=== PATIENT | male | born 1940 | race Caucasian/White ===

== ENCOUNTER → 2017-04-16 | Outpatient (CLI) | payer OTHER | LOC: FIMAGING 15:00 | PROVIDERS: ATTEND Internal Medicine | DX: J44.9 Chronic obstructive pulmonary disease, unspecified (principal); R07.81 Pleurodynia; I25.10 Atherosclerotic heart disease of native coronary artery without angina pectoris | CPT/HCPCS: 81003-QW-PO; G0463-PO ==

== ENCOUNTER → 2017-05-04 | Outpatient (CLI) | payer OTHER | LOC: BHFA 09:30 | PROVIDERS: ATTEND Internal Medicine Cardiovascular Disease | DX: I25.10 Atherosclerotic heart disease of native coronary artery without angina pectoris (principal); I34.0 Nonrheumatic mitral (valve) insufficiency ==

== ENCOUNTER → 2017-05-04 | Outpatient (CLI) | payer OTHER | LOC: BHFA 09:30 | PROVIDERS: ATTEND Internal Medicine Cardiovascular Disease | DX: R94.31 Abnormal electrocardiogram [ECG] [EKG] (principal) ==

== ENCOUNTER 2018-03-11 17:17 | Inpatient (IN) | payer OTHER ==
--- NOTE | 2018-03-11 17:26 | CPEKG ---
Heart Rate: 73 RR Interval: 822 P-R Interval: 124 QRSD Interval: 104 QT Interval: 376 QTC Interval: 415 P Cisco: -13 QRS Cisco: -27 T Wave Cisco: 10 EKG Severity - OTHERWISE NORMAL ECG - EKG Impression: SINUS RHYTHM Electronically Signed By: Ramses Vanegas 11-Mar-2018 18:28:16
--- NOTE | 2018-03-11 17:33 | EDPHY ---
H & P Stated Complaint: Medtronic Pacer/Defib has defibbed 5 times beginning around 1400 today Time Seen by Provider: 03/11/18 17:26 HPI/ROS: CHIEF COMPLAINT: AICD firing HISTORY OF PRESENT ILLNESS: The patient presents the ED after 5 episodes of his AICD firing since 2 o'clock this afternoon. The patient denies any symptoms of chest pain or shortness of breath. The patient felt he may have been getting electrocuted by an appliance. The patient does have a history of coronary artery disease. He is status post stenting of the right coronary artery in 2016. The patient has had no symptoms of recent exertional chest pain or shortness of breath. He denies asymmetric calf pain or swelling. He denies additional acute complaints. The patient's AICD was placed for ventricular tachycardia. REVIEW OF SYSTEMS: A comprehensive 10 point review of systems is otherwise negative aside from elements mentioned in the history of present illness. Source: Patient Exam Limitations: No limitations - Personal History Tetanus Vaccine Date: 2009 - Medical/Surgical History Hx Asthma: No Hx Chronic Respiratory Disease: No Hx Diabetes: No Hx Cardiac Disease: Yes Hx Renal Disease: No Hx Cirrhosis: No Hx Alcoholism: No Hx HIV/AIDS: No Hx Splenectomy or Spleen Trauma: No Other PMH: [place] 1981, HIATAL HERNIA, APPENDECTOMY, PARTIAL THYROIDECTOMY, AICD d/ t tachycardia - Social History Smoking Status: Former smoker - Physical Exam Exam: General Appearance: Alert, no distress Eyes: Pupils equal and round no pallor or injection ENT, Mouth: Mucous membranes moist Respiratory: There are no retractions, lungs are clear to auscultation Cardiovascular: Regular rate and rhythm Gastrointestinal: Abdomen is soft and nontender, no masses, bowel sounds normal Neurological: A&O, normal motor function, normal sensory exam, normal cranial nerves Skin: Warm and dry, no rashes Musculoskeletal: Neck is supple nontender Extremities: symmetrical, full range of motion Constitutional: Initial Vital Signs Heart Rate 66 03/11/18 17:23 Respiratory Rate 18 03/11/18 17:23 Blood Pressure 153/89 H 03/11/18 17:23 O2 Sat (%) 94 03/11/18 17:23 O2 Delivery Mode Room Air Allergies/Adverse Reactions: Penicillins Allergy (Mild, Verified 11/04/15 10:51) Rash Home Medications: Medication Instructions Recorded Aspirin [Aspirin 81mg (*)] 81 mg PO HS 11/04/15 Multivitamins [Multivitamin (*)] 1 tab PO DAILY@1800 11/04/15 OMEPRAZOLE 20 mg PO DAILY@1800 11/04/15 Nitroglycerin [Nitrostat 0.4 mg 0.4 mg SL PRN PRN #1 btl 11/07/15 (*)] Lisinopril [Zestril 2.5 mg (*)] 2.5 mg PO DAILY #30 tab 12/13/15 Apixaban [Eliquis] 5 mg PO BID #60 tablet 12/18/15 Atorvastatin Calcium [Lipitor 20 20 mg PO HS 12/18/15 mg (*)] Metoprolol Tartrate [Lopressor 25 12.5 mg PO BID 12/18/15 mg (*)] Medical Decision Making - Diagnostics EKG Interpretation: EKG: Complete interpretation has been separately recorded in the [employer] archive. Summary impression: Sinus rhythm, rate 86 Imaging Results: Chest x-ray AP: Images reviewed by myself, negative for heart failure or obvious pacemaker lead malfunction. ED Course/Re-evaluation: Consultation was made with Dr. Fernandez from Cardiology who interrogated the patient 's device and found that it was appropriately shocking ventricular tachycardia. The patient will be loaded on amiodarone and admitted to the hospital under the care of the cardiology service. The patient was monitored throughout his stay in the emergency department without recurrent arrhythmia. Review of the patient's chest x-ray, EKG and electrolytes are unremarkable. The patient will be admitted to the PCU monitored unit in stable condition. Differential Diagnosis: Differential diagnosis considered includes ventricular tachycardia, ventricular fibrillation, atrial fibrillation, SVT, pacemaker malfunction - Data Points Laboratory Results: Laboratory Results 03/11/18 17:25 03/11/18 17:25 03/11/18 03/11/18 03/11/18 17:25 17:25 17:25 WBC 11.06 10^3/uL H 10^3/uL (3.80-9.50) RBC 5.22 10^6/uL 10^6/uL (4.40-6.38) Hgb 15.7 g/dL g/dL (13.7-17.5) Hct 47.2 % % (40.0-51.0) MCV 90.4 fL fL (81.5-99.8) MCH 30.1 pg pg (27.9-34.1) MCHC 33.3 g/dL g/dL (32.4-36.7) RDW 13.6 % % (11.5-15.2) Plt Count 188 10^3/uL 10^3/uL (150-400) MPV 10.5 fL fL (8.7-11.7) Neut % (Auto) 75.7 % H % (39.3-74.2) Lymph % (Auto) 17.5 % % (15.0-45.0) Avery % (Auto) 4.5 % % (4.5-13.0) Eos % (Auto) 1.5 % % (0.6-7.6) Baso % (Auto) 0.5 % % (0.3-1.7) Nucleat RBC Rel Count 0.0 % % (0.0-0.2) Absolute Neuts (auto) 8.36 10^3/uL H 10^3/uL (1.70-6.50) Absolute Lymphs (auto) 1.94 10^3/uL 10^3/uL (1.00-3.00) Absolute Monos (auto) 0.50 10^3/uL 10^3/uL (0.30-0.80) Absolute Eos (auto) 0.17 10^3/uL 10^3/uL (0.03-0.40) Absolute Basos (auto) 0.06 10^3/uL 10^3/uL (0.02-0.10) Absolute Nucleated RBC 0.00 10^3/uL 10^3/uL (0-0.01) Immature Gran % 0.3 % % (0.0-1.1) Immature Gran # 0.03 10^3/uL 10^3/uL (0.00-0.10) Sodium 144 mEq/L mEq/L 142 mEq/L mEq/L (135-145) (135-145) Potassium 4.4 mEq/L mEq/L 4.4 mEq/L mEq/L (3.3-5.0) (3.3-5.0) Chloride 105 mEq/L mEq/L 104 mEq/L mEq/L (97-110) (97-110) Carbon Dioxide 23 mEq/l mEq/l 25 mEq/l mEq/l (22-31) (22-31) Anion Gap 16 mEq/L mEq/L 13 mEq/L mEq/L (8-16) (8-16) BUN 21 mg/dL mg/dL 20 mg/dL mg/dL (7-23) (7-23) Creatinine 1.1 mg/dL mg/dL 1.1 mg/dL mg/dL (0.7-1.3) (0.7-1.3) Estimated GFR > 60 > 60 Glucose 141 mg/dL H mg/dL 140 mg/dL H mg/dL (70-100) (70-100) Calcium 9.5 mg/dL mg/dL 9.6 mg/dL mg/dL (8.5-10.4) (8.5-10.4) Total Bilirubin 1.9 mg/dL H mg/dL (0.1-1.4) AST 27 IU/L IU/L (17-59) ALT 38 IU/L IU/L (21-72) Alkaline Phosphatase 88 IU/L IU/L (38-126) Total Protein 8.0 g/dL g/dL (6.3-8.2) Albumin 4.4 g/dL g/dL (3.5-5.0) Medications Given: Discontinued Medications Amiodarone HCl (Amiodarone Hcl) 100 mls @ 600 mls/hr IV ONCE ONE Stop: 03/11/18 17:52 Last Admin: 03/11/18 17:55 Dose: 100 mls Departure - Departure Disposition: [facility] Inpatient Acute Clinical Impression: Ventricular tachycardia Condition: Good
[2018-03-11 17:41] LABS: PLATELET COUNT 188 10^3/uL (150-400)
[2018-03-11] MEDS ORDERED: AMIODARONE HCL 100 ML IV ONE (17:43)
[2018-03-11] MEDS ORDERED: AMIODARONE HCL 200 ML IV ONE (18:10)
[2018-03-11] MEDS ORDERED: AMIODARONE HCL 540 MG in D5W 300 ML IV ONE (18:10)
[2018-03-12] MEDS ORDERED: AMIODARONE HCL 540 MG in D5W 300 ML IV ONE (01:00)
[2018-03-12] MEDS ORDERED: NITROGLYCERIN 0.4 MG BTL SL PRN (07:36)
[2018-03-12] MEDS ORDERED: DIAZEPAM 5 MG TAB PO ONE (07:37)
[2018-03-12] MEDS ORDERED: ASPIRIN EC 325 MG TAB PO ONE (07:37)
[2018-03-12] MEDS ORDERED: diphenhydrAMINE 25 MG CAP PO ONE (07:37)
[2018-03-12] MEDS ORDERED: TEMAZEPAM 15 MG CAP PO PRN (07:37)
[2018-03-12] MEDS ORDERED: FAMOTIDINE 20 MG TAB PO ONE (07:37)
--- NOTE | 2018-03-12 08:25 | GHP ---
[f rep st] PREOP HISTORY AND PHYSICAL DATE OF ADMISSION: 03/11/2018 This is a 77-year-old male with past medical history of coronary artery disease status post PCI in [facility] 2016, status post ventricular tachycardia with Medtronic ICD placement, functional severe MR, w hich resolved after the stent placement. Over the past 2 years, the patient has been stable with [facility] followup with Dr. Mccoy and he has done well. He denies any symptoms over the past 1 year. He was working in his lawn and cutting the grass at which point in time, he started feeling ICD shocks w ithout preceding chest pain, shortness of breath, lightheadedness, dizziness, presyncope, or syncope. He felt as if he was getting electrocuted by an appliance. The patient denies any fever, any recent increase in weight, any pedal edema. No recent change in me dications. REVIEW OF SYSTEMS: Other than the above is negative. PAST MEDICAL HISTORY: 1. Coronary artery disease status post PCI to the RCA, bare metal stents placed. 2. Severe MR, which was functional and after his last echocardiogram showed mild MR with normal EF. 3. Myocardial infarction 40 years back. 4. Reflux disease, hiatal hernia, dyslipidemia, hypertension. FAMILY HISTORY: Positive family history of coronary artery disease. SOCIAL HISTORY: Quit smoking 3-4 drinks per week. He is retired. Active. ALLERGIES: Penicillin. HOME MEDICATION: Nitroglycerin, metoprolol 12.5 twice daily, lisinopril 2.5 once a day, atorvastatin 20 mg once a day, aspirin, omeprazole. PHYSICAL EXAM: VITAL SIGNS: Blood pressure of 110/68, pulse of 62, respiratory rate 16. HEENT: Th e patient is alert, oriented, in no apparent distress. Pupils equal, reacting to light, accommodatin g. NECK: No JVD. No thyromegaly. CHEST: Good air entry bilaterally equal. No rales, rhonchi, ru b. CARDIAC: S1, S2 regular. No S3. No murmurs. ABDOMEN: Soft, nontender. No guarding or rigidi ty. Bowel sounds present. EXTREMITIES: No edema. LAB VALUES: Normal EKGs, normal device was interrogated. Patient had VT with VA dissociation. His VT rate was at around 200 to 207 beats per minute. 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 ATP did termina te in a couple of cases. However, the VT restarted. In addition to this, the patient also had ICD s hocks after which the VT restarted, so it appears that there was not a failure of the device, but elena oing trigger which started his VT back again. IMPRESSION AND PLAN: This is a 77-year-old with coronary artery disease, status post myocardial infa rction, status post percutaneous coronary intervention, status post implantable cardioverter defibril lator, normal ejection fraction as per echo last year. However, the patient did have right coronary artery stenosis last year and 2 years back when he had deep venous thrombosis. In view of this, eval uating with a cardiac catheterization will be helpful. I have explained to him the risks and benefit s and he is thinking about it. For his monomorphic ventricular tachycardia, I will start him on intravenous amiodarone and then toth sition over to p.o. amiodarone. I have explained to him the risks and benefits of the amiodarone. Cristina galvan understands, but he also understands that the benefit outweighs the risks. I will recheck his echocardiogram to make sure there is no change in the ejection fraction, which may have contributed to this or worsening of his mitral regurgitation, which may have contributed to thi s. Thank you for letting me participate in the patient's care. /[id number]/MODL
--- NOTE | 2018-03-12 09:06 | PDHPUP ---
History & Physical Update H&P update statement: This history and physical update is based on an assessment of the patient which was completed after admission or registration (within 24 hours), but prior to the surgery/procedure. H&P update: H&P reviewed & patient examined, no change in patient's condition since H&P completed (Reviewed Dr. Fernandez's consult dated 03/12/2018)
--- NOTE | 2018-03-12 09:07 | PDPROPOC ---
Sedation Plan of Care Sedation Plan of Care: vital signs stable, mental status noted ASA Classification: ASA 2 Planned drugs: fentanyl, midazolam Mallampati Score: Class 2 Mallampati Reference Image: Patient passed 3-3-2 rule?: Yes
[2018-03-12] MEDS ORDERED: MIDAZOLAM 2 MG/2 ML VIAL ONE (09:21)
[2018-03-12] MEDS ORDERED: fentaNYL 100 MCG/2 ML INJ ONE (09:21)
[2018-03-12] MEDS ORDERED: IOPAMIDOL (ISOVUE-370) 150 ML BTL IV ONE (09:21)
[2018-03-12] MEDS ORDERED: LIDOCAINE 1% 300 MG/30 ML SDV ONE (09:21)
[2018-03-12 09:23] LABS: INR 1.03 (0.83-1.16); PROTIME(PATIENT) 13.7 SEC (12.0-15.0)
--- NOTE | 2018-03-12 11:45 | ASMTCMCOM ---
CM Note CM Note Notes: Patient admitted after getting ICD shocks from Medtronic ICD without any precipitating symptoms. He has a history of CAD. 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 Patient is normally independent, very active. He lives with his and has children nearby. I do not anticipate any discharge needs, but Case Management available if anything comes up. Current CM Discharge plan: home with family Date Signed: 03/12/2018 11:44 AM Electronically Signed By:Taylor Kumari RN
[2018-03-12] MEDS ORDERED: ATROPINE SULFATE 1 MG/10 ML SYR ONE (12:57)
[2018-03-12] MEDS ORDERED: ATROPINE SULFATE 1 MG/10 ML SYR IVP PRN (13:00)
[2018-03-12] MEDS ORDERED: ONDANSETRON 4 MG/2 ML VIAL IVP PRN (13:00)
--- NOTE | 2018-03-12 13:04 | PDDXCAT ---
Diagnostic Cath Note - . Date: 03/12/18 Proofreader: Jim Indication: Sustained (>30 sec) monomorphic ventricular tachycardia - Procedure Access: right groin Procedure: left heart catheterization - Materials Left Heart Cath size: 4F Left Heart Cath materials: JL4.0, JR4.0 - Findings-Left Heart Catheterization LM: Normal and divides into LAD and LCx LAD: Moderate size with D1. Luminal irregularities LCX: Codominant. Luminal irregularities but otherwise normal. RCA: Stent patent. Good MACKENZIE III flow. No significant atherosclerosis Complications: None Estimated blood loss: <50ml Closure method: manual pressure Assessment: No flow limiting/significant coronary artery disease. Plan: Medical management Patient Problems: Problems Problem Status Onset Ventricular tachycardia Acute Acute cholecystitis Acute DVT (deep venous thrombosis) Acute
[2018-03-12] MEDS: LISINOPRIL 2.5 MG TAB PO SCH (15:11)
[2018-03-12] MEDS: METOPROLOL TARTRATE 25 MG TAB PO SCH ×2 (15:12→20:13)
[2018-03-12] MEDS: AMIODARONE HCL 200 MG TAB PO SCH ×2 (15:12→20:13)
--- NOTE | 2018-03-12 15:45 | PDMN ---
Medical Necessity Medical necessity: change to IP; los>2mn for ventricular tachycardia; requires continued amiodarone gtt, with transition to oral; comorbid CAD s/p MS/PCI and ICD, HTN, HLD, hx DVT; per order 03/12/18
--- NOTE | 2018-03-12 16:58 | ECHO ---
[email or web address] [address] [address] Main: [phone] Fax: Transthoracic Echocardiogram Name: CORINNE HERRERA MR#: [id number] Study Date: 03/12/2018 Study Time: 08:56 AM Date of : 1940 Age: 77 year(s) Height: 182.9 cm (72 in.) Weight: 71.21 kg (157 lb.) BSA: 1.92 m2 Gender: Male Examination: Echo Indication: Ventricular tachycardia Image Quality: Adequate Contrast: Requested by: Oscar Fernandez BP: 112 mmHg/66 mmHg Heart Rate: Rhythm: Normal sinus rhythm Indication: Ventricular tachycardia Procedure Staff Photoengraver Apprentice: Brianne Gottlieb [facility] [[email or web address]] Reading Physician: Chandni Lackey MD Requesting Provider: Conclusions: Normal size left ventricle. No LV hypertrophy. Low normal left ventricular systolic function. EF is 52 %. Grade 1 diastolic dysfunction (abnormal relaxation). Basal inferior wall is thin, bight and akinetic consistent with old DC. Normal size right ventricle. Normal RV function. There is an ICD lead noted in the right ventricle. Mild mitral valve regurgitation is present. Trivial to mild aortic valve regurgitation. Mild tricuspid regurgitation is present. Right ventricular systolic pressure measures 26mmHg. compared with 05/04/2017 mild aortic regurgitation is now present. Other findings are similar. Measurements: Chambers Valvular Assessment AV/MV Valvular Assessment TV/PV Normal Normal Normal Name Value Range Name Value Range Name Value Range Ao Pia (MM): 3.0 cm (2.2 cm-3.7 AV Vmax: 1.30 m/s (1 m/s-1.7 TR Vmax: 2.27 mm/s ( - ) cm) m/s) TR PGmax: 21 mmHg ( - ) IVSd (2D): 0.8 cm (0.6 cm-1.1 AV maxP mmHg ( - ) syst. PAP: 26 mmHg ( - ) cm) LVOT Vmax: 0.70 m/s (0.7 m/s-1.1 PV Vmax: 0.88 m/s (0.6 m/s-0.9 LVDd (2D): 4.6 cm (4.2 cm-5.9 m/s) m/s) cm) MV E Vmax: 0.59 m/s ( - ) PV PGmax: 3 mmHg ( - ) LVDs (2D): 3.8 cm (2.1 cm-4 MV A Vmax: 0.69 m/s ( - ) cm) MV E/A: 0.86 ( - ) LVPWd (2D): 0.9 cm (0.6 cm-1 cm) LVEF (BP): 52 % (>=55 %) Patient: CORINNE HERRERA Study Date: 03/12/2018 Page 1 of 2 08:56 AM RVDd(2D): 3.2 cm (1.9 cm-3.8 cmmm) Continued Measurements: Chambers Valvular Assessment AV/MV Valvular Assessment TV/PV Name Value Name Value Name Value LADs Lon.3 cm MV DecTime: 246 m/s CVP (est.): 5 mmHg LA Area: 18.6 cm2 MV E' Septal: 0.05 m/s LA Volume: 49 ml MV E/E' Septal: 11.60 LA Volume Index: 25.5 ml/m2 MV E/E' Lateral: 7.20 TAPSE: 1.8 cm RA Area: 14.6 cm2 Additional Vessels Name Value Ao Ascendin.2 cm Findings: Left Ventricle: Normal size left ventricle. No LV hypertrophy. Low normal left ventricular systolic function. EF is 52 %. Grade 1 diastolic dysfunction (abnormal relaxation). Basal inferior wall is thin, bight and akinetic consistent with old DC. Right Ventricle: Normal size right ventricle. Normal RV function. There is an ICD lead noted in the right ventricle. Left Atrium: The left atrium is normal in size. Right Atrium: The right atrium is normal in size. There is an ICD lead noted in the right atrium. Mitral Valve: There is moderate thickening of the mitral valve leaflets. Mild mitral valve regurgitation is present. No mitral stenosis is present. Aortic Valve: The aortic valve is tri-leaflet and functions normally. Mild aortic cusp calcification is noted. No aortic valve stenosis is present. Trivial to mild aortic valve regurgitation. Tricuspid Valve: Tricuspid valve not visualized. Mild tricuspid regurgitation is present. The pulmonary artery pressure is normal. Right ventricular systolic pressure measures 26mmHg. Pulmonic Valve: The pulmonic valve is normal in appearance and function. There is no pulmonic regurgitation seen. Aorta: Normal size aortic root measuring 3.0 cm. Normal size ascending aorta measuring 3.2 cm. Pericardium: No pericardial effusion. (No Signature Object) Patient: CORINNE HERRERA Study Date: 03/12/2018 Page 2 of 2 08:56 AM [id number]
[2018-03-12] MEDS ORDERED: MULTIVITAMINS 1 EACH TAB PO SCH (18:00)
[2018-03-12] MEDS ORDERED: ASPIRIN 81 MG CHEWABLE TAB PO SCH (21:00)
[2018-03-12] MEDS ORDERED: ATORVASTATIN CALCIUM 20 MG TAB PO SCH (21:00)
[2018-03-13 04:51] LABS: PLATELET COUNT 179 10^3/uL (150-400)
[2018-03-13 07:20] VITALS: BP 109/67
[2018-03-13] MEDS: METOPROLOL TARTRATE 25 MG TAB PO SCH (07:53)
[2018-03-13] MEDS: LISINOPRIL 2.5 MG TAB PO SCH (07:54)
[2018-03-13] MEDS: AMIODARONE HCL 200 MG TAB PO SCH (07:54)
--- NOTE | 2018-03-13 09:47 | ASDISCHSUM ---
Discharge Information Plan Status:Home with No Needs Medically Cleared to Leave:03/13/2018 Discharge Date:03/13/2018 CM D/C Disposition:Home, Routine, Self-Care ADT D/C Disposition:Home, Routine, Self-Care Projected Discharge Date:03/13/2018 12:00 AM Transportation at D/C:Family Discharge Delay Reason: Follow-Up Date:03/13/2018 12:00 AM Discharge Slot:1 - 8:01 am - 12:00 noon Final Diagnosis:Monomorphic ventricular tachycardia Placement Information Patient Contact Information Contact Name:NADEEM(DAUGHTER)SHARON Relationship: Address:[address] City:[place] Alternate Phone: [facility]/Zip Code:[place] [address] Email: Financial Information Financial Class:Medicare Primary Plan Desc:MEDICARE OUTPATIENT Primary Plan Number:[id number] Secondary Plan Desc:AMIE Secondary Plan Number:[id number] Assessment Information [facility] CM Progress Note CM Note CM Note Notes: Patient admitted after getting ICD shocks from Medtronic ICD without any precipitating symptoms. He has a history of CAD. 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 Patient is normally independent, very active. He lives with his and has children nearby. I do not anticipate any discharge needs, but Case Management available if anything comes up. Current CM Discharge plan: home with family Date Signed: 03/12/2018 11:44 AM Electronically Signed By:Taylor Kumari RN Intervention Information Intervention Type:*GUADALUPE-Signed Date of Service:03/12/2018 03:44 PM Patient Type:Inpatient Staff Member:Kathy Macdonald Hours: Discipline: Severity: Comment:
--- NOTE | 2018-03-13 09:51 | ASMTCMCOM ---
CM Note CM Note Notes: CM met with patient prior to discharge, patient states his will pick him up and will support with any follow up as recommended states no questions for CM at this time. Patient given IM, he signed receipt and IM placed in back of chart. CM available for any additional follow up needs. Date Signed: 03/13/2018 09:51 AM Electronically Signed By:Yadi Preston
--- NOTE | 2018-03-13 09:52 | ASMTLACE ---
SC[facility] Comorbidities - select Answers: Coronary Artery Disease all that apply Previous myocardial infarction Other Notes: HTN # of Emergency department Answers: 1-2 visits in the last 6 months Score: 5 Date Signed: 03/13/2018 09:51 AM Electronically Signed By:Yadi Preston
--- NOTE | 2018-03-13 11:00 | GDS ---
[f rep st] DISCHARGE SUMMARY DIAGNOSES ON ADMISSION: 1. Monomorphic ventricular tachycardia with appropriate automatic implantable cardioverter-defibrill ator therapy. 2. Coronary artery disease with remote history of myocardial infarction and percutaneous coronary in tervention. 3. History of severe mitral regurgitation which improved after percutaneous coronary intervention. 4. Dyslipidemia. 5. Hypertension. DISCHARGE DIAGNOSES: 1. Monomorphic ventricular tachycardia. 2. Starting antiarrhythmic therapy. 3. Coronary artery disease. 4. History of severe mitral regurgitation which improved with percutaneous coronary intervention. 5. Hypertension. 6. Dyslipidemia. PROCEDURES PERFORMED DURING HOSPITALIZATION: 1. Electrocardiogram. 2. Chest x-ray. 3. Diagnostic coronary catheterization. 4. Echocardiogram. BRIEF HISTORY: Please see H and P. briefly, the patient is a 77-year-old male with previous history of myocardial infarction, and coronary artery disease, with remote [employer] AICD implantation. Mow ing his yard on the experience defibrillator shock x5, presented to the emergency department for further evaluation. HOSPITAL COURSE: Upon arrival to the emergency department, interrogation of the device was done, dwayne wing monomorphic ventricular tachycardia. His VT rates were between 200-207 beats per minute. This was evaluated by Dr. Fernandez of Electrophysiology Services. Due to this, he was started on antiarrhythm ic therapy of IV amiodarone. Placed on the PCU for overnight observation. On the following morning, he did undergo echocardiogram which showed low normal LVEF of 52% with basilar inferior wall thinnin g and akinetic consistent with old [place]. He is noted to have trivial to mild AI, mild TR, mild MR, RVS P was within normal limits. Due to his history and recent events he was later, on the , taken to the cardiac catheterization lab by Dr. Fernandez and underwent diagnostic coronary catheterization from th e right groin, noted his left main was normal. His LAD was moderate size with luminal irregularities , circumflex was noted with luminal irregularities but no flow limitation. RCA with previous stent w hich was patent, MACKENZIE-3 flow and no significant arthrosclerosis. After 24 hours of IV amiodarone, he was transitioned to oral amiodarone at 400 mg p.o. twice daily. On telemetry he has had no further r uns of VT. He denies any chest pain or pressure since his hospitalization and has had no adverse jamilah ctions with amiodarone loading. PHYSICAL EXAMINATION: GENERAL APPEARANCE: Thin, well-groomed male. He is alert and oriented to per son, place, time, situation. Appears to be under no acute distress. VITAL SIGNS: Blood pressure of 109/67, heart rate 65, sinus rhythm on the monitor. Respirations 16, saturating 92% on room air. T emperature 36.7 degrees Celsius. HEENT: Head is normocephalic. Lips and tongue are pink and moist with no signs of cyanosis. Conjunctivae pink. NECK: Trachea is midline, +2 carotid pulses bilatera l. No auscultated bruits, no jugular vein distention. RESPIRATORY: Lungs are clear to auscultation , no rhonchi, rales or wheezes. No accessory muscle use. No intercostal muscle retraction noted. C ARDIAC: Regular rate, regular rhythm, S1, S2. No S3, 1/6 systolic murmur noted along the left becerra al border. ABDOMEN: Soft, nontender. Bowel sounds x4 quadrants. SKIN: [place], warm, dry, no cyanos is, no clubbing, no peripheral edema. VASCULAR: +2 carotids bilateral, +2 radials bilateral, +1 mimi jalyn pedal and posterior tibial pulses bilateral. Right groin site, catheter insertion site, with 50 cent size hematoma over insertion site but no redness, swelling, drainage. No auscultated bruit note d over site. LABORATORY STUDIES: Laboratory studies drawn today noted WBC of 9.57, hemoglobin of 14.9, hematocrit of 45.3, platelet count of 179. Electrolytes showed sodium of 141, potassium 4.3, chloride 104, CO2 26, BUN 23, creatinine 1.1, glucose 119, calcium 8.8, magnesium 1.9. The patient was noted to have elevated troponin on the morning of the 1st at 0.240 potentially due to his AICD shocks. STUDIES: Electrocardiogram done on admission showing sinus rhythm, leftward axis, no significant ST or T-wave abnormalities. Echocardiogram as mentioned above. Chest x-ray on admission showing no acu te cardiopulmonary process. Cardiac catheterization as mentioned above. DISCHARGE DISPOSITION: Patient will be discharged home in stable condition. He is under activity re strictions of not lifting more than 10 pounds for the next week and no strenuous activity for the nex t 2 weeks. DISCHARGE MEDICATIONS: Please see discharge med reconciliation sheet, note patient has been resumed on all his home medications including aspirin, metoprolol, lisinopril and atorvastatin. He is sent h ome with a new prescription of amiodarone 400 mg p.o. twice daily. DISCHARGE INSTRUCTIONS: Post cardiac catheterization discharge instructions went over with the patie nt including monitoring for signs of infection, bleeding precautions, activity restrictions. We have also discussed antiarrhythmic therapy of amiodarone. I will have our office call him Thursday and hav e him plan on being seen by Dr. Fernandez in the next week for re-evaluation and adjustment of any antiarr hythmic therapy. At the time of discharge, patient verbalizes understanding all instructions and has no questions or concerns. He has been told that if any problems or concerns comes up post discharge he is to call our office or return to the hospital. Total time spent on discharge greater than 30 minutes. /[id number]/MODL
== END 2018-03-13 09:54 | disposition home or self-care (01) | DRG 287 ==
LOC: UNDOADMOB 17:52 → INTOOBSV 17:52 → OBSVTOIN 17:52 → F2W 20:15 → OBSVTOIN 03-12 15:30 → F2W 03-12 15:30 → UNDODISIN 03-13 09:54
PROVIDERS: ADMIT Internal Medicine Cardiovascular Disease; ATTEND Internal Medicine Cardiovascular Disease
PROC: 4A023N7 Measurement of Cardiac Sampling and Pressure, Left Heart, Percutaneous Approach (ICD-10-PCS; principal; 2018-03-12)
PROC: B2111ZZ Fluoroscopy of Multiple Coronary Arteries using Low Osmolar Contrast (ICD-10-PCS; principal; 2018-03-12)
DX: I47.2 Ventricular tachycardia (principal); Z95.810 Presence of automatic (implantable) cardiac defibrillator; I25.10 Atherosclerotic heart disease of native coronary artery without angina pectoris; K21.9 Gastro-esophageal reflux disease without esophagitis; I25.2 Old myocardial infarction; Z95.5 Presence of coronary angioplasty implant and graft; Z87.891 Personal history of nicotine dependence
CPT/HCPCS: G0378; J0282; J0461; J1644; J2250; J3010; Q9967

== ENCOUNTER → 2018-03-17 | Outpatient (CLI) | payer OTHER | LOC: BHLMT 15:15 | PROVIDERS: ATTEND Internal Medicine Cardiovascular Disease | DX: I47.2 Ventricular tachycardia (principal); Z95.810 Presence of automatic (implantable) cardiac defibrillator | CPT/HCPCS: 93005-PO ==

== ENCOUNTER → 2018-04-21 | Outpatient (CLI) | payer OTHER | LOC: BHLMT 13:30 | PROVIDERS: ATTEND Internal Medicine Cardiovascular Disease | DX: I47.2 Ventricular tachycardia (principal) | CPT/HCPCS: 93005-PO ==

== ENCOUNTER → 2018-12-16 | Outpatient (CLI) | payer OTHER | LOC: FIMAGING 10:47 | PROVIDERS: ATTEND Internal Medicine Cardiovascular Disease | DX: Z51.81 Encounter for therapeutic drug level monitoring (principal); Z79.899 Other long term (current) drug therapy ==

== ENCOUNTER → 2018-12-21 | Outpatient (CLI) | payer OTHER | LOC: FIMAGING 08:47 | PROVIDERS: ATTEND Family Medicine | DX: S76.312A Strain of muscle, fascia and tendon of the posterior muscle group at thigh level, left thigh, initial encounter (principal); S76.212A Strain of adductor muscle, fascia and tendon of left thigh, initial encounter; N32.89 Other specified disorders of bladder ==

== ENCOUNTER → 2019-03-10 | Outpatient (CLI) | payer OTHER | LOC: FIMAGING 12:44 ==